=== PATIENT | female | born 1940 | race Caucasian/White ===

== ENCOUNTER 2023-11-15 11:56 | Emergency (ER) | payer MEDICARE, SELFPAY ==
[2023-11-15 12:08] VITALS: BP 155/60; PULSE 104; RESP 20; TEMP 36.7; O2SAT 97
[2023-11-15 12:16] VITALS: BP 155/60; PULSE 104; RESP 20; TEMP 36.7; O2SAT 97
--- NOTE | 2023-11-15 12:39 | ED.URI ---
HPI - URI/Sore Throat General Chief Complaint: Upper Respiratory Infection Stated Complaint: Cough Time Seen by Provider: 11/15/23 12:22 Source: patient, family, RN notes reviewed and old records reviewed Mode of arrival: ambulatory Limitations: no limitations History of Present Illness HPI Narrative: 83 year old female who presents to [facility] accompanied by family member with complaints of sinus congestion and drainage for about 2 months with some dry cough at times with symptoms increasing for the one week. Patient [place] been using her inhaler at times for her cough denies any shortness of breath or any wheezing, Patient has used her nasal spray and has been taking Zicam. for her symptoms. Family reports that patient has not had fevers, chills or sweats or any complaints of body aches. MD elicited complaint: cough, rhinorrhea and nasal congestion Pertinent past history: seasonal allergies Onset (ago): month(s) (2 months with increased symptoms one week) Consistency: constant Severity: moderate Able to tolerate fluids by mouth: Yes Treatments prior to arrival: other (inhaler nasal spray and Zicam) Related Data Home Medications Medication Instructions Recorded Confirmed albuterol sulfate 90 mcg/actuation See Rx Instructions .Route 11/15/23 11/15/23 aerosol inhaler .COMPLEX PRN Cough buspirone 10 mg tablet 10 mg PO BID 11/15/23 11/15/23 citalopram 40 mg tablet 40 mg PO DAILY 11/15/23 11/15/23 fluticasone propionate 50 See Rx Instructions .Route 11/15/23 11/15/23 mcg/actuation nasal .COMPLEX PRN Allergy Symptoms spray,suspension levothyroxine 75 mcg tablet 75 mcg PO DAILY 11/15/23 11/15/23 simvastatin 40 mg tablet 40 mg PO DAILY 11/15/23 11/15/23 sitagliptin phos 50 mg-metformin 1 tablet PO DAILY 11/15/23 11/15/23 ER 1,000 mg tablet,extend rel 24h mp (Janumet XR) Allergies Allergy/AdvReac Type Severity Reaction Status Date / Time amoxicillin AdvReac Unknown Verified 11/15/23 12:48 Review of Systems Review of Systems: CONSTITUTIONAL: Denies malaise, chills, sweats, or fever. EYES: Denies visual changes, redness, or discharge. ENT: Reports rhinorrhea, congestion, sinus pain, no otalgia and no sore throat. CARDIOVASCULAR: Denies chest pain, palpitations, or edema. RESPIRATORY: Reports dry cough.? Denies dyspnea. GASTROINTESTINAL: Denies abdominal pain, nausea, vomiting, diarrhea SKIN: Denies rash or itching. MUSCULOSKELETAL: Denies myalgia. NEUROLOGIC: Denies headache. All systems reviewed & are unremarkable except as noted in HPI and below PMFSH Past Medical History Medical History (Updated 11/17/23 @ 10:11 by Tanya Overton NP) Anxiety Diabetes Elevated cholesterol Hypothyroid Seasonal allergies UTI (urinary tract infection) Social History Social History (Updated 11/17/23 @ 10:09 by Tanya Overton NP) Smoking status: Never smoker Alcohol intake: former Alcohol use details: social Substance use type: does not use Gender identity (if verbalized by the patient): Female Comments At time of signature, agree with nursing past medical, surgical, social and family history. There is no relevant family history pertinent to the presenting complaint Exam Narrative: GENERAL: Well-appearing, well-nourished, and in no acute distress. HEAD: Normocephalic EYES: PERRLA, conjunctivae clear ENT: Nares clear, turbinates edematous and erythematous, clear discharge. Mucous membranes moist. TM pearly dalal with dull light reflex bilaterally; no tragal tenderness. Oropharynx erythematous without lesions. Tonsils not enlarged and without exudate, no drooling, no hoarseness, no trismus, uvula midline.post nasal drainage present NECK: Supple. No lymphadenopathy CHEST: Clear to auscultation, breath sounds equal. No wheezing, rhonchi, rales, or stridor. No respiratory distress, speaks in full sentences. dry cough noted SAO2 97% on room air HEART: Regular rate and rhythm. No
== END 2023-11-15 12:50 | disposition home or self-care (01) ==
PROVIDERS: Emergency Provider Registered Nurse; PCP Internal Medicine
DX: J01.40 Acute pansinusitis, unspecified (principal); R05.1 Acute cough; F41.9 Anxiety disorder, unspecified; E11.9 Type 2 diabetes mellitus without complications; E03.9 Hypothyroidism, unspecified
CPT/HCPCS: 99203; G0463